=== PATIENT | male | born 1980 ===

== ENCOUNTER 2017-07-02 13:11 | Day surgery (SDC) | payer OTHER ==
[~2017-07-02] VITALS: Ht 180.3 cm; Wt 100.7 kg
[2017-07-02] MEDS ORDERED: ASCO500 (13:34)
[2017-07-02] MEDS ORDERED: SERT20L (13:34)
== END 2017-07-02 16:17 | disposition home or self-care (01) ==
LOC: ORSCSDS 13:11
PROVIDERS: Internal Medicine Gastroenterology
PROC: 0DJD8ZZ Inspection of Lower Intestinal Tract, Via Natural or Artificial Opening Endoscopic (ICD-10-PCS; principal; 2017-07-02 15:15)
DX: K62.5 Hemorrhage of anus and rectum (principal); K64.8 Other hemorrhoids; Z87.891 Personal history of nicotine dependence; Z79.899 Other long term (current) drug therapy
CPT/HCPCS: J7040

== ENCOUNTER 2019-01-24 06:54 | Day surgery (SDC) | payer BC, OTHER ==
[~2019-01-24] VITALS: Ht 180.3 cm; Wt 102.7 kg
[~2019-01-24 06:54] MED LIST: ASCO500; LORA.5 PO; MELA3 PO; OLANZAPINE5 MG PO; OMEPRAZOLE20 MG PO; PRAZ1 PO; SERT20L; VENL150ER PO; ZOLP12.5 PO
--- NOTE | 2019-01-24 07:24 | NUR ---
01/24/19 0724 Savanah Starks 1 IV MISS IN RH BY LIONEL VALVE 1 GOOD IV IN RW BY LIONEL PT TOW
== END 2019-01-24 08:43 | disposition home or self-care (01) ==
LOC: ORSCSDS 06:54
PROVIDERS: Internal Medicine Gastroenterology
PROC: 0DB68ZX Excision of Stomach, Via Natural or Artificial Opening Endoscopic, Diagnostic (ICD-10-PCS; principal; 2019-01-24 08:00)
PROC: 0DB38ZX Excision of Lower Esophagus, Via Natural or Artificial Opening Endoscopic, Diagnostic (ICD-10-PCS; principal; 2019-01-24 08:00)
PROC: 0DB98ZX Excision of Duodenum, Via Natural or Artificial Opening Endoscopic, Diagnostic (ICD-10-PCS; principal; 2019-01-24 08:00)
PROC: 0DB18ZX Excision of Upper Esophagus, Via Natural or Artificial Opening Endoscopic, Diagnostic (ICD-10-PCS; principal; 2019-01-24 08:00)
DX: K21.9 Gastro-esophageal reflux disease without esophagitis (principal); R11.10 Vomiting, unspecified; K20.8 Other esophagitis; K31.89 Other diseases of stomach and duodenum; F17.210 Nicotine dependence, cigarettes, uncomplicated; F41.8 Other specified anxiety disorders; Z79.899 Other long term (current) drug therapy
CPT/HCPCS: 88305; 88342; J0461; J2405; J2704; J7120

== ENCOUNTER → 2019-12-08 | Outpatient (CLI) | payer BC, OTHER | END | disposition home or self-care (01) | LOC: LAB EV 12:56 → LAB SHORT 12:56 | DX: R05 Cough (principal); Z20.828 Contact with and (suspected) exposure to other viral communicable diseases | CPT/HCPCS: 87081; U0003 ==

== ENCOUNTER → 2022-06-09 | Outpatient (CLI) | payer BC ==
[2022-06-09 09:51] LABS: Lithium 0.23 mmol/L (0.60-1.20)
== END | disposition home or self-care (01) ==
LOC: LAB SHORT 07:12 → LAB 07:12
PROVIDERS: Nurse Practitioner Psychiatric/Mental Health
DX: F39 Unspecified mood [affective] disorder (principal)
CPT/HCPCS: 80178